=== PATIENT | male | born 1945 | race Caucasian/White ===

== ENCOUNTER → 2018-10-06 08:51 | Outpatient (CLI) | payer OTHER, SELFPAY ==
[2018-10-06 09:30] LABS: Hematocrit 42.7 % (41-53); Mean Corpuscular HGB Conc 35.1 % (30-36); Mean Corpuscular Hemoglobin 30.8 PG (26-34); Mean Corpuscular Volume 87.9 fL (80-100); Platelet Count 278 X10^3/uL (150-400); Red Blood Cell Count 4.86 X10^6/uL (4.5-5.9); Red Cell Distribution Width 13.1 % (11.6-14.8); White Blood Cell Count 8.7 X10^3/uL (4.5-11.0)
[2018-10-06 09:48] LABS: Alanine Aminotransferase 40 IU/L (21-72); Albumin 4.1 g/dL (3.5-5.0); Albumin Globulin Ratio 1.2 (1.0-2.8); Alkaline Phosphatase 69 U/L (38-126); Aspartate Aminotransferase 30 IU/L (17-59); BUN Creatinine Ratio 16.4 (6-22); Bilirubin Total 0.6 mg/dL (0.2-1.3); Blood Urea Nitrogen 18 mg/dL (9-20); Calcium 9.1 mg/dL (8.4-10.2); Carbon Dioxide 28 mmol/L (22-32); Chloride 103 mmol/L (98-107); Cholesterol 158 mg/dL (140-199); Estimated Glomerular Filt Rate > 60.0 mL/min (>60); Globulin 3.4 g/dL (1.7-4.1); Glucose 125 mg/dL (80-110); HDL Cholesterol 34 mg/dL (40-60); HEMOLYSIS < 15 (0-50); LDL Cholesterol Calculated 96 mg/dL (<100); Potassium 4.4 mmol/L (3.4-5.1); Sodium 144 mmol/L (137-145); Total Protein 7.5 g/dL (6.3-8.2); Triglycerides 138 mg/dL (35-150)
[2018-10-06 10:13] LABS: Thyroid Stimulating Hormone 1.43 uIU/mL (0.47-4.68)
== END ==
PROVIDERS: PCP Family Medicine; Visit Provider Family Medicine
DX: E07.9 Disorder of thyroid, unspecified (principal); E78.00 Pure hypercholesterolemia, unspecified; E78.5 Hyperlipidemia, unspecified; K21.9 Gastro-esophageal reflux disease without esophagitis; N40.0 Benign prostatic hyperplasia without lower urinary tract symptoms; Z51.81 Encounter for therapeutic drug level monitoring
CPT/HCPCS: 36415; 80053; 80061; 84153; 84443; 85027

== ENCOUNTER → 2019-06-05 07:57 | Outpatient (CLI) | payer MEDICARE, SELFPAY ==
[2019-06-05 09:30] LABS: Hemoglobin A1C% w Est Avg Glu 5.7 % (4.0-6.0)
[2019-06-05 10:03] LABS: Alanine Aminotransferase 33 IU/L (21-72); Albumin 4.2 g/dL (3.5-5.0); Albumin Globulin Ratio 1.2 (1.0-2.8); Alkaline Phosphatase 69 U/L (38-126); Aspartate Aminotransferase 27 IU/L (17-59); BUN Creatinine Ratio 14.2 (6-22); Bilirubin Total 0.8 mg/dL (0.2-1.3); Blood Urea Nitrogen 17 mg/dL (9-20); Calcium 9.4 mg/dL (8.4-10.2); Carbon Dioxide 27 mmol/L (22-32); Chloride 105 mmol/L (98-107); Estimated Glomerular Filt Rate 59.5 mL/min (>60); Globulin 3.5 g/dL (1.7-4.1); Glucose 114 mg/dL (80-110); HEMOLYSIS < 15 (0-50); Potassium 4.8 mmol/L (3.4-5.1); Sodium 142 mmol/L (137-145); Total Protein 7.7 g/dL (6.3-8.2)
[2019-06-05 10:30] LABS: Free T3, Triiodothyronine Free 3.25 pg/mL (2.77-5.27); Free T4, Direct Thyroxine 0.89 ng/dL (0.78-2.19)
[2019-06-05 10:43] LABS: Thyroid Stimulating Hormone 1.43 uIU/mL (0.47-4.68)
== END ==
PROVIDERS: PCP Family Medicine; Visit Provider Family Medicine
DX: E04.9 Nontoxic goiter, unspecified (principal); E07.9 Disorder of thyroid, unspecified; Z51.81 Encounter for therapeutic drug level monitoring
CPT/HCPCS: 36415; 80053; 83036; 84439; 84443; 84481

== ENCOUNTER → 2020-06-12 14:07 | Outpatient (CLI) | payer MEDICARE, SELFPAY ==
--- NOTE | 2020-06-12 14:08 | DI.US.S_ITS ---
PROCEDURE: US ABD AORTA ANEURYSM SCREEN INDICATIONS: AAA SCREEN TECHNIQUE: Real time scanning was performed of the aorta and iliac arteries, with image documentation. COMPARISON: None. FINDINGS: Aorta: Proximal aortic not well visualized secondary to overlying bowel gas. Mid-aorta measures 2.6 cm. Distal aortic diameter is 1.8 cm. Iliac arteries: Right common iliac artery measures 1.6 cm. Left common iliac artery measures 1.6 cm. IMPRESSION: Proximal aorta not well visualized; otherwise no abdominal aortic or common iliac artery aneurysm. Dictated by: Cristobal Ocampo [facility] Interpreted: Yinka García MD on 06/12/2020 at 15:06 Approved by: Yinka García M.D. on 06/12/2020 at 16:23
--- NOTE | 2020-06-12 14:08 | DI.US.S_ITS ---
PROCEDURE: US THYROID INDICATIONS: NODULE TECHNIQUE: Real-time scanning was performed of the thyroid gland, with image documentation. COMPARISON: [facility], US, BIOPSY LOCALIZATION/ASPIRATION, 01/02/2016, 10:52. [facility], US, THYROID, 12/18/2015, 14:38. FINDINGS: Right: Thyroid lobe measures 6.2 x 3.7 x 3.6 cm, and is homogeneous in echotexture. Left: Thyroid lobe measures 6.3 x 2.0 x 1.5 cm, and is homogenous in echotexture. Isthmus: 6-7 mm thick. Nodule number: 1 Location: Left mid lobe Size: 0.7 x 0.4 x 0.5 cm. Composition: Solid Echogenicity: Hypoechoic Shape: wider than tall. Margins: Smooth Echogenic foci: None Total points: 4 ACR TI-RADS category: Moderately suspicious Nodule number: 2 Location: Right middle lobe Size: 3.5 x 4.1 x 3.3 cm. Previously 2.8 x 3.2 x 3.7 cm. Previous FNA 01/02/16. Composition: Predominantly cystic Echogenicity: Hypoechoic Shape: wider than tall. Margins: Ill-defined Echogenic foci: None Total points: 2 ACR TI-RADS category: Not suspicious Nodule number: 3 Location: Right inferior lobe Size: 0.8 x 0.6 x 0.6 cm. Composition: Solid Echogenicity: Hypoechoic Shape: Taller than wide Margins: Smooth Echogenic foci: None Total points: 7 ACR TI-RADS category: Highly suspicious IMPRESSION: Multiple thyroid nodules as detailed above. Recommend continued ultrasound surveillance in 1 year as below. ACR TI-RADS definitions and recommendations: TI-RADS 1 (benign): 0 points. FNA not needed. TI-RADS 2 (not suspicious): 2 points. FNA not needed. TI-RADS 3 (mildly suspicious): 3 points. * FNA if 2.5 cm or larger, follow up if 1.5 cm or larger (at 1, 3, and 5 years). TI-RADS 4 (moderately suspicious): 4-6 points. * FNA if 1.5 cm or larger, follow up if 1 cm or larger (at 1, 2, 3, and 5 years). TI-RADS 5 (highly suspicious): 7 points or more. * FNA if 1 cm or larger, follow up if 0.5 cm or larger (every year for 5 years). Dictated by: Ramiro Carrasco M.D. on 06/12/2020 at 15:38 Approved by: Ramiro Carrasco M.D. on 06/12/2020 at 15:43
--- NOTE | 2020-06-12 14:08 | DI.ECHO.S_ITS ---
[place] [facility]---------+ [facility] +---------+ : : [id number] . : : : : [place] : : : : [id number] : : : : Phone: [phone] Echocardiogram Report + + :Name: RADHIKA BURNS Study Date: 06/12/2020 Height: 77 in : :[facility] Weight: 283 lb : : Gender: Male BSA: 2.6 m2 : :: 1945 Age: 74 yrs BP: 159/90 mmHg: :Reason For Study: ABNORMAL EKG : : Performed By: Sherri Singh : :Referring: NETTA MORROW : + + Interpretation Summary The left ventricle is normal in size. The ejection fraction is estimated to be 50-55%. The right ventricle is normal in size and function. No significant valvular pathology seen. The ascending aorta is mildly enlarged. Procedure: A two-dimensional transthoracic echocardiogram with color flow and Doppler was performed. The study quality was technically adequate. There is no prior echocardiogram noted for this patient. The patient was in sinus bradycardia with heart rates between 53-60 bpm during the exam. The patient had frequent PACs during the exam. The patient had a bundle branch block rhythm during the exam. Left Ventricle: The left ventricle is normal in size. Proximal septal thickening is noted. There is no echo evidence for significant left ventricular outflow tract obstruction. There is no thrombus. A false chord is noted (normal variant). The ejection fraction is estimated to be 50-55%. There is a mild dyssynchronous contraction pattern, consistent with a conduction abnormality. Diastolic parameters suggest a relaxation abnormality of the left ventricle, consistent with probable normal filling pressures. Right Ventricle: The right ventricle is normal in size and function. Atria: The left atrium is mildly dilated. Right atrial size is normal. There is no Doppler evidence for an interatrial shunt. Mitral Valve: There is mild mitral annular calcification. The mitral valve leaflets are slightly calcified. There is trace mitral regurgitation. Aortic Valve: The aortic valve is trileaflet. The aortic valve opens well. There is no aortic valve stenosis. There is trace aortic regurgitation. Tricuspid Valve: The tricuspid valve is normal in structure and function. Pulmonary artery pressures cannot be estimated because of the lack of a measurable TR jet velocity but the IVC suggests a CVP of around 8 mmHg. There is trace tricuspid regurgitation. Pulmonic Valve: The pulmonic valve leaflets are thin and pliable; valve motion is normal. There is mild pulmonic regurgitation. Great Vessels: The aortic root is normal size. The ascending aorta is mildly enlarged. The IVC is dilated (diameter is greater than 2.1 cm) yet it collapses greater than 50% with a sniff. This suggests a right atrial pressure of 8 mm Hg. Pericardium/ Pleura There is no pericardial effusion. There is no pleural effusion. MMode/2D Measurements & Calculations LVIDd: 5.8 cm LVOT diam: 2.3 cm LVIDs: 4.1 cm Ao root diam: 3.7 cm FS: 29.2 % asc Aorta Diam: 4.0 cm EPSS: 1.3 cm Ao Arch Diam (Prox Trans): 2.8 cm IVSd: 1.1 cm LVPWd: 0.96 cm LV spaulding. diameter/BSA (cm/m^2): 2.2 LV sys. diameter/BSA (cm/m^2): 1.6 LA A2 area: 30.4 cm2 RA long axis: 5.3 cm LA A4 area: 23.5 cm2 RA area: 18.7 cm2 LA length (vol): 6.0 cm RA vol: 55.8 ml LA vol: 101.5 ml RA : 21.5 ml/m2 LA vol index: 39.2 ml/m2 IVC diam: 2.0 cm RVD1 (basal): 3.7 cm TAPSE: 2.0 cm Doppler Measurements & Calculations Ao V2 max: 148.5 cm/sec LVOT Max Keith: 85.3 cm/sec Ao V2 mean: 92.5 cm/sec LV V1 max P.9 mmHg Ao max P.8 mmHg LV V1 VTI: 20.3 cm Ao mean P.0 mmHg GROVER(I,D): 2.8 cm2 Ao V2 VTI: 31.3 cm GROVER(V,D): 2.5 cm2 sev ratio: 0.65 GROVER indexed to BSA (cm^2/m^2): 1.1 MV E max keith: 69.4 cm/sec PA V2 max: 82.2 cm/sec MV A max keith: 78.7 cm/sec PA V2 mean: 51.7 cm/sec MV E/A: 0.88 PA mean P.3 mmHg Med Peak E' Keith: 6.0 cm/sec PA pr(Accel): 27.6 mmHg E/E' med: 11.6 Lat Peak E' Keith: 8.9 cm/sec E/E' lat: 7.8 E/e' average: 9.7 MV dec time: 0.20 sec [facility] 87.5 ml Reading Physician:07:10 PM
== END ==
PROVIDERS: PCP Student in an Organized Health Care Education/Training Program; Referring Provider Student in an Organized Health Care Education/Training Program; Visit Provider Student in an Organized Health Care Education/Training Program
DX: I37.1 Nonrheumatic pulmonary valve insufficiency (principal); I77.89 Other specified disorders of arteries and arterioles; E04.2 Nontoxic multinodular goiter; Z13.6 Encounter for screening for cardiovascular disorders; R94.31 Abnormal electrocardiogram [ECG] [EKG]; R07.89 Other chest pain; Z87.891 Personal history of nicotine dependence
CPT/HCPCS: 76536; 76706; 93306

== ENCOUNTER → 2021-05-26 16:44 | Outpatient (CLI) | payer MEDICARE, SELFPAY ==
[2021-05-26 18:25] LABS: COVID19 -Nasal RAPID Negative (Negative)
== END ==
PROVIDERS: PCP Student in an Organized Health Care Education/Training Program; Visit Provider Physician Assistant
DX: J02.9 Acute pharyngitis, unspecified (principal); Z20.822 Contact with and (suspected) exposure to COVID-19
CPT/HCPCS: 87635

== ENCOUNTER → 2021-06-06 15:44 | Outpatient (CLI) | payer MEDICARE, SELFPAY ==
[2021-06-06 16:45] LABS: COVID19 -Nasal RAPID Negative (Negative)
== END ==
PROVIDERS: PCP Student in an Organized Health Care Education/Training Program; Visit Provider Surgery
DX: Z01.812 Encounter for preprocedural laboratory examination (principal); Z20.822 Contact with and (suspected) exposure to COVID-19
CPT/HCPCS: 87635; C9803

== ENCOUNTER 2021-06-09 06:41 | Day surgery (SDC) | payer MEDICARE, SELFPAY ==
[2021-06-09] VITALS (7 sets, daily range): BP systolic 111–139; BP diastolic 70–89; PULSE 63–97; RESP 10–16; TEMP 36.1–37.1; O2SAT 93–95; BMI 34.9
--- NOTE | 2021-06-09 | PATH_ITS ---
[facility] Accession Number: [id number] . 01 Material submitted: . rectum - RECTAL POLYP . 02 Diagnosis: Rectal Polyp, Biopsy: Inflammatory polyp. MRV 06/11/2021 1003 Local . 02 Electronically signed: . Theodore Daniel MD, PhD, Pathologist NPI- [id number] . 01 Gross description: . RECTAL POLYP: Received in formalin is 1 fragment(s) of gore, soft tissue measuring 0.7 x 0.6 x 0.3 cm submitted entirely in 1 cassette(s) /GROVER 06/10/2021 0334 Local . 02 Pathologist provided ICD-10: K51.40 . 02 CPT . 466539 Performed at: 01 [facility] Cytology [address] [place] [address], [place], [place] [id number] MD aCesar Cortez MD Phone: [phone] Performed at: 02 [facility] [address] [place], [place] [id number] MD Angeline Alberto MD Phone: [phone]
[2021-06-09] MEDS: LACTATED RINGERS 1,000 ML 200 ML IV (07:15)
--- NOTE | 2021-06-09 07:46 | PM.HP.1 ---
History of Present Illness History of Present Illness Date Patient Seen: 06/09/21 Time Patient Seen: 07:46 Chief complaint: SDC Narrative: The patient presents for colorectal sreening. Colonoscopy 5 years ago. Here today because he had a positive fecal immunoccult test (FIT). No personal or family history of colon cancer. On further history denies any recent gastrointestinal symptoms. No nausea, vomiting, abdominal pain, loss of appetite, unexplained weight loss, change in bowel habits, diarrhea, constipation, melena, hematochezia, or bright red blood per rectum. Patient History Medical History Rectal bleeding Family & Social History Social History: household members spouse Tobacco & Substance use: Smoking Status Former smoker alcohol intake current alcohol intake frequency holiday/special occasion Substance Use Type does not use Meds Home Medications and Allergies Home Medications Medication Instructions Recorded Confirmed Type pseudoephedrine HCl 60 mg tablet 1 tab PO PRN #0 12/25/11 06/09/21 History dorzolamide 22.3 mg-timolol 6.8 1 drp OPHTH BID #0 07/26/17 06/09/21 History mg/mL eye drops lovastatin 40 mg tablet 20 mg PO QDAY #90 tab 09/12/20 06/09/21 Rx Allergies Allergy/AdvReac Type Severity Reaction Status Date / Time No Known Drug Allergies Allergy Verified 06/09/21 06:59 Review of Systems Review of Systems ROS: Yes All systems reviewed with the patient and are negative except as otherwise documented Exam Vital Signs (past 8 hours): - 06/09/21 07:04 Temperature 97.0 F L Pulse Rate 97 H Respiratory Rate 16 Blood Pressure 139/89 Pulse Oximetry 95 Oxygen Delivery Method Room Air Narrative Exam Narrative: GENERAL-well developed elderly male, no acute distress HEENT-no scleral icterus, hearing intact NECK-no JVD, trachea midline CVS- regular rate, no peripheral edema RESP-unlabored respiratory effort, no audible wheezing GI-soft, nontender nondistended MSK-no cyanosis or clubbing, extremities without deformity SKIN-warm, dry NEURO-alert and oriented, no focal deficits PYSCH-Appropriate mood and affect Assessment & Plan Assessment & Plan narrative: The patient requires colorectal screening and colonoscopy is recommended following a positive FIT. Technical details were discussed. Risks, benefits, alternatives explained. Risks including but not limited to myocardial infarction, aspiration, bleeding, pain, missed lesion, incomplete examination, need for further radiographic studies, colonic perforation, and need for major abdominal surgery were discussed. All questions were answered to their satisfaction, and they are in agreement with this plan.
[2021-06-09] MEDS: fentaNYL 250 MCG/5 ML INJ IV (08:11)
[2021-06-09] MEDS: MIDAZOLAM 5 MG/5 ML VIAL IV (08:11)
--- NOTE | 2021-06-09 08:28 | P.OP.ENDO_ITS ---
Operative Date/Time/Diagnoses Date of procedure: 06/09/21 Time of procedure: 08:28 Pre-op diagnosis: Positive FIT Post-op diagnosis: other (rectal polyp) Procedure & Clinicians Study performed: Colonoscopy and polypectomy Same procedure as scheduled: Yes Indications: Positive FIT Surgeon: Blaise Sanchez Procedure Notes Procedure in detail: Medications: Conscious sedation using 6mg IV midazolam and 200mcg IV of fentanyl The history and physical was performed/updated and the patient is ASA class is 2. The procedure was discussed in detail with the patient. Potential risks complications including infection, bleeding, missed diagnosis, perforation, need for surgery, and were explained. Their questions were answered and informed consent was obtained. Patient was brought to the procedure room and placed standard monitoring equ ipment. The patient's vital signs were monitored continuously throughout the entire procedure. Prior to starting time-out was performed. The patient was placed in the left lateral recumbent position. Procedural sedation was administered. Examination began with a thorough inspection of the perianal area there was no evidence of fissures, fistulae, external hemorrhoids or cutaneous malignancy. The colonoscopy scope was then placed into the anal canal and was advanced to the cecum, which was identified by the ileocecal valve, the appendiceal orifice and the confluence of the taenia. The scope was then slowly withdrawn examining colon thoroughly in all directions, irrigating it of any residual stool. FINDINGS 1. 1 cm mid rectal polyp at 20 cm from the verge removed with cold snare in its entirety. 3 mL of tattoo injected into the submucosal space surrounding polypectomy site. The patient tolerated the procedure well. They will be discharged once criteria are met. The prep was of good/excellent quality. The withdrawl time was 7 minutes. The sedation time was 34 minutes. Specimen(s): other (Rectal polyp) Complications: none Impression: Colonic polyp Post-procedure Plan for aftercare: Will notify with pathology results Disposition: same day surgery
== END 2021-06-09 09:15 | disposition home or self-care (01) ==
PROVIDERS: PCP Student in an Organized Health Care Education/Training Program; Referring Provider Surgery; Visit Provider Surgery
PROC: 0DJD8ZZ Inspection of Lower Intestinal Tract, Via Natural or Artificial Opening Endoscopic (ICD-10-PCS; CPT 45378; principal; 2021-06-09 07:45)
DX: R19.5 Other fecal abnormalities (principal); D12.8 Benign neoplasm of rectum
CPT/HCPCS: 45385; 99152; 99153; J2250; J3010

== ENCOUNTER → 2021-07-31 10:04 | Outpatient (CLI) | payer MEDICARE, SELFPAY ==
--- NOTE | 2021-07-31 10:05 | DI.US.S_ITS ---
PROCEDURE: US THYROID INDICATIONS: FOLLOW-UP NODULES TECHNIQUE: Real-time scanning was performed of the thyroid gland, with image documentation. COMPARISON: [facility], US, US THYROID, 06/12/2020, 14:33. FINDINGS: Right: Thyroid lobe measures 6.2 x 2.9 x 2.8 cm, and is heterogeneous in echotexture. Left: Thyroid lobe measures 6.1 x 2.4 x 1.9 cm, and is heterogeneous in echotexture. Isthmus: 4.9 mm thick. Nodule number: 1 Location: Left midpole Size: 7.5 x 3.9 x 4.7 mm. Composition: Solid Echogenicity: Hyperechoic Shape: Wider than tall Margins: Smooth Echogenic foci: None Total points: 4 ACR TI-RADS category: Moderately suspicious Nodule number: 2 Location: Right upper pole Size: 2.9 x 1.9 by 1.9 cm. Previously 3.5 x 4.1 x 3.3 cm. Composition: Solid. Previously predominately cystic. Echogenicity: heterogeneous Shape: Wider than tall Margins: Ill-defined Echogenic foci: None Total points: 4 ACR TI-RADS category: Moderately suspicious Nodule number: 3 Location: Right lower pole Size: 7.3 x 5.1 by 5.8 mm. Composition: Solid Echogenicity: Isoechoic Shape: Taller than wide Margins: Ill-defined Echogenic foci: None. Total points: 6 ACR TI-RADS category: Moderately suspicious IMPRESSION: No significant change has occurred. Multiple thyroid nodules as detailed above. Recommend continued ultrasound surveillance in 1 year as below. ACR TI-RADS definitions and recommendations: TI-RADS 1 (benign): 0 points. FNA not needed. TI-RADS 2 (not suspicious): 2 points. FNA not needed. TI-RADS 3 (mildly suspicious): 3 points. * FNA if 2.5 cm or larger, follow up if 1.5 cm or larger (at 1, 3, and 5 years). TI-RADS 4 (moderately suspicious): 4-6 points. * FNA if 1.5 cm or larger, follow up if 1 cm or larger (at 1, 2, 3, and 5 years). TI-RADS 5 (highly suspicious): 7 points or more. * FNA if 1 cm or larger, follow up if 0.5 cm or larger (every year for 5 years). Dictated by: Tucker Cuevas M.D. on 07/31/2021 at 17:04 Approved by: Tucker Cuevas M.D. on 07/31/2021 at 17:22
== END ==
PROVIDERS: PCP Student in an Organized Health Care Education/Training Program; Referring Provider Student in an Organized Health Care Education/Training Program; Visit Provider Student in an Organized Health Care Education/Training Program
DX: E04.2 Nontoxic multinodular goiter (principal)
CPT/HCPCS: 76536

== ENCOUNTER → 2021-12-08 09:23 | Outpatient (CLI) | payer MEDICARE, SELFPAY ==
[2021-12-08 12:28] LABS: COVID19 -Nasal RAPID Negative (Negative)
== END ==
PROVIDERS: PCP Student in an Organized Health Care Education/Training Program; Visit Provider Family Medicine Sleep Medicine
DX: Z20.822 Contact with and (suspected) exposure to COVID-19 (principal)
CPT/HCPCS: 87635; C9803

== ENCOUNTER 2021-12-09 07:31 | Day surgery (SDC) | payer MEDICARE, SELFPAY ==
[2021-12-09] MEDS: PROPARACAINE 0.5% OPHTH SOL 2 DROPS EYE-OP (08:03)
[2021-12-09] MEDS: CATARACT EYE COMPOUND (10 DROPS/SYRINGE) 3 DROPS EYE-OP (08:05)
[2021-12-09 08:06] VITALS: BP 144/92; PULSE 65; TEMP 36.6; O2SAT 97
[2021-12-09 08:10] VITALS: BMI 34.9
--- NOTE | 2021-12-09 08:54 | P.OP.PRE_ITS ---
Pre-operative Note Interval Note History & Physical reviewed/Exam performed by Physician: Yes Changes to H&P: No Addendum Addendum Note: Threre are no non surgical alternatives to the patient's condition. Deterior ation of the patient's condition is expected. Delay may result in more complex future surgery.
--- NOTE | 2021-12-09 08:55 | PM.OP.1 ---
Operative Date/Time/Diagnoses Pre-op diagnosis: Nuclear cataract right eye Procedure & Clinicians Procedure: Cataract Surgery Same procedure as scheduled: Yes Surgeon: Wes Gomez Anesthesia Type: MAC +/- and Sedation Operative Notes Procedure in detail: Patient brought to the operating suite. Tetracaine drops placed in the right eye. Patient was prepped and draped in sterile manner. Wire lid speculum was placed in the eye. Betadine drops were placed on the eye. This was irrigated. Lidocaine jelly was placed on the eye. A paracentesis port was created with a side-port blade. 0.1 mL 1% preservative free lidocaine was injected into the anterior chamber. The anterior chamber was deepened with viscoelastic. 2.6 mm keratome was used to create a temporal clear corneal incision. Cystotome and Utrata forceps were used to create continuous tear capsulorrhexis. Balanced salt solution was used to hydro dissect the nucleus. The phacoemulsification handpiece was inserted and the nucleus was removed using the stop and chop technique. The irrigation aspiration handpiece was inserted and the remaining cortex was removed. Anterior chamber was deepened with viscoelastic. An Gonzalez DIB00 intraocular lens with a power of 17.5 was injected into the capsular bag. Irrigation aspiration handpiece was inserted and the remaining viscoelastic was removed. Incision was hydrated with balanced salt solution and found to be leak free with pressure with Weck-Dania sponges. 0.1 mL Vigamox injected anterior chamber. 0.3 mL Kenalog 10 mg was injected subconjunctivally. Lid speculum was removed. The patient left the operating room in excellent condition. Complications: none Post-operative Condition: stable Disposition: same day surgery
[2021-12-09] MEDS: HYALURONATE SODIUM 30 MG-10 MG/ML SYRINGES 1 BOX INTRAOCULA (09:05)
[2021-12-09] MEDS: LIDOCAINE 2% (GLYDO) 6 ML GEL TOP (09:06)
[2021-12-09] MEDS: MOXIFLOXACIN INJ 4 MG/0.8 ML VIAL 0.5 MG EYE-OP (09:06)
[2021-12-09] MEDS: PHENYLEPHRINE/LIDOCAINE VIAL (OR) 0.2 ML EYE-OP (09:06)
[2021-12-09] MEDS: TETRACAINE 0.5% OPHTH DROPS 4 ML 2 DROPS EYE-OP (09:06)
[2021-12-09] MEDS: BALANCED SALT IRRIG SOLN NO.2 500 ML, EPINEPHrine 1 MG IRR (09:06)
[2021-12-09] MEDS: TRIAMCINOLONE 50 MG/5 ML VIAL INJ (09:06)
[2021-12-09 09:21] VITALS: BP 149/87; PULSE 63; RESP 16; TEMP 36.6; O2SAT 95
== END 2021-12-09 09:50 | disposition home or self-care (01) ==
PROVIDERS: PCP Student in an Organized Health Care Education/Training Program; Referring Provider Ophthalmology; Visit Provider Ophthalmology
PROC: (CPT 66984; principal; 2021-12-09 09:15)
DX: H25.11 Age-related nuclear cataract, right eye (principal); E78.5 Hyperlipidemia, unspecified
CPT/HCPCS: 66984; J0171; J2250; J3010; J3301

== ENCOUNTER → 2021-12-22 11:33 | Outpatient (CLI) | payer MEDICARE, SELFPAY ==
[2021-12-22 14:36] LABS: COVID19 -Nasal RAPID Negative (Negative)
== END ==
PROVIDERS: PCP Student in an Organized Health Care Education/Training Program; Visit Provider Family Medicine Sleep Medicine
DX: Z20.822 Contact with and (suspected) exposure to COVID-19 (principal)
CPT/HCPCS: 87635; C9803

== ENCOUNTER 2021-12-23 08:26 | Day surgery (SDC) | payer MEDICARE, SELFPAY ==
[2021-12-23 09:31] VITALS: BMI 33.2
[2021-12-23] MEDS: PROPARACAINE 0.5% OPHTH SOL 2 DROPS EYE-OP (09:32)
[2021-12-23 09:37] VITALS: BP 158/94; PULSE 64; RESP 18; TEMP 36.3; O2SAT 98
[2021-12-23] MEDS: CATARACT EYE COMPOUND (10 DROPS/SYRINGE) 3 DROPS EYE-OP (09:42)
--- NOTE | 2021-12-23 10:33 | PM.PREOP ---
Pre-operative Note Interval Note History & Physical reviewed/Exam performed by Physician: Yes Changes to H&P: No
--- NOTE | 2021-12-23 10:34 | PM.OP.1 ---
Operative Date/Time/Diagnoses Pre-op diagnosis: Nuclear Cataract Left eye Post-op diagnosis: same Procedure & Clinicians Same procedure as scheduled: Yes Surgeon: Wes Gomez Anesthesia Type: MAC +/- and Sedation Operative Notes Procedure in detail: Patient brought to the operating suite. Tetracaine drops placed in the left eye. Patient was prepped and draped in sterile manner. Wire lid speculum was placed in the eye. Betadine drops were placed on the eye. This was irrigated. Lidocaine jelly was placed on the eye. A paracentesis port was created with a side-port blade. 0.1 mL 1% preservative free lidocaine was injected into the anterior chamber. The anterior chamber was deepened with viscoelastic. 2.6 mm keratome was used to create a temporal clear corneal incision. Cystotome and Utrata forceps were used to create continuous tear capsulorrhexis. Balanced salt solution was used to hydro dissect the nucleus. The phacoemulsification handpiece was inserted and the nucleus was removed using the stop and chop technique. The irrigation aspiration handpiece was inserted and the remaining cortex was removed. Anterior chamber was deepened with viscoelastic. An Gonzalez DIB00 intraocular lens with a power of 17.5 was injected into the capsular bag. Irrigation aspiration handpiece was inserted and the remaining viscoelastic was removed. Incision was hydrated with balanced salt solution and found to be leak free with pressure with Weck-Dania sponges. 0.1 mL Vigamox injected anterior chamber. 0.3 mL Kenalog 10 mg was injected subconjunctivally. Lid speculum was removed. The patient left the operating room in excellent condition. Complications: none Post-operative Condition: stable Disposition: same day surgery
[2021-12-23] MEDS: HYALURONATE SODIUM 30 MG-10 MG/ML SYRINGES 1 BOX INTRAOCULA (10:46)
[2021-12-23] MEDS: PHENYLEPHRINE/LIDOCAINE VIAL (OR) 0.2 ML EYE-OP (10:46)
[2021-12-23] MEDS: MOXIFLOXACIN INJ 4 MG/0.8 ML VIAL 0.5 MG EYE-OP (10:46)
[2021-12-23] MEDS: BALANCED SALT IRRIG SOLN NO.2 500 ML, EPINEPHrine 1 MG IRR (10:47)
[2021-12-23] MEDS: TETRACAINE 0.5% OPHTH DROPS 4 ML 2 DROPS EYE-OP (10:47)
[2021-12-23] MEDS: TRIAMCINOLONE 50 MG/5 ML VIAL INJ (10:47)
[2021-12-23] MEDS: LIDOCAINE 2% (GLYDO) 6 ML GEL TOP (10:47)
[2021-12-23 10:59] VITALS: BP 154/90; PULSE 57; RESP 16; TEMP 36.1; O2SAT 99
== END 2021-12-23 11:16 | disposition home or self-care (01) ==
PROVIDERS: PCP Student in an Organized Health Care Education/Training Program; Referring Provider Ophthalmology; Visit Provider Ophthalmology
PROC: (CPT 66984; principal; 2021-12-23 10:15)
DX: H25.12 Age-related nuclear cataract, left eye (principal)
CPT/HCPCS: 66984; J0171; J2250; J3301

== ENCOUNTER → 2022-03-04 08:08 | Outpatient (CLI) | payer MEDICARE, SELFPAY ==
[2022-03-04 08:53] LABS: BUN Creatinine Ratio 12.6 (6-22); Blood Urea Nitrogen 16 mg/dL (9-20); Calcium 8.9 mg/dL (8.4-10.2); Carbon Dioxide 27 mmol/L (22-32); Chloride 107 mmol/L (98-107); Cholesterol 193 mg/dL (140-199); Estimated Glomerular Filt Rate 59 mL/min (>60); Glucose 123 mg/dL (80-110); HDL Cholesterol 36 mg/dL (40-60); HEMOLYSIS < 15 (0-50); LDL Cholesterol Calculated 117 mg/dL (<100); Potassium 4.2 mmol/L (3.4-5.1); Sodium 141 mmol/L (137-145); Triglycerides 198 mg/dL (35-150)
== END ==
PROVIDERS: PCP Student in an Organized Health Care Education/Training Program; Referring Provider Student in an Organized Health Care Education/Training Program; Visit Provider Student in an Organized Health Care Education/Training Program
DX: E78.2 Mixed hyperlipidemia (principal); N18.31 Chronic kidney disease, stage 3a; R03.0 Elevated blood-pressure reading, without diagnosis of hypertension
CPT/HCPCS: 36415; 80048; 80061

== ENCOUNTER 2022-10-06 10:42 | Emergency (ER) | payer MEDICARE, SELFPAY ==
[2022-10-06 11:22] VITALS: BP 188/95; PULSE 62; RESP 15; TEMP 36.7; O2SAT 98; BMI 32.5
--- NOTE | 2022-10-06 11:27 | DI.US.S_ITS ---
PROCEDURE: US PERIPH VENOUS LOW EXTREM LT INDICATIONS: EDEMA TECHNIQUE: Real-time imaging, as well as color and pulse Doppler interrogation, were performed of the lower extremity deep veins from the inguinal ligament to the popliteal fossa. COMPARISON: None. FINDINGS: The common femoral, femoral and popliteal veins are normally compressible, and free of intraluminal thrombus. Color and pulse Doppler demonstrate normal phasic intraluminal flow. There is normal augmentation response to distal compression maneuver. IMPRESSION: No sonographic evidence of DVT. Dictated by: Canelo Katz M.D. on 10/06/2022 at 13:07 Approved by: Canelo Katz M.D. on 10/06/2022 at 13:07
--- NOTE | 2022-10-06 12:37 | ED_ITS ---
HPI - Extremity Problem <Jessenia Taylor PA-C - Last Filed: 10/06/22 16:04> General Chief complaint: Extremity Problem,Nontraumatic Stated complaint: DVT Time Seen by Provider: 10/06/22 12:37 Source: patient Mode of arrival: Wheelchair History of Present Illness HPI Narrative: 77-year-old male with a history of obesity, chronic lower extremity swelling presents with concern for left lower extremity swelling worse than baseline with some redness and tenderness that has been present for 1-2 weeks. Patient states that swelling has not been much more than usual but a couple weeks ago he noticed some redness on the inside of his calf and some pain that isn't typically present. He states his pain is about a 2/3 started as a sharp type pain and now it feels more like an achy pain. 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 He states that his pain really started a couple of days ago and ?I googled it and I called my doctor and they could not get me in and they told me to go to the walk-in clinic?. Patient denies any fevers, chills, any known injury to the affected leg, also denies chest pain, shortness of breath, coughing or hemoptysis, ankle pain or knee pain. He states he has otherwise been in his usual state of health Related Data Home Medications Medication Instructions Recorded Confirmed pseudoephedrine HCl 60 mg tablet 1 tab PO PRN ##0 12/25/11 07/22/22 dorzolamide 22.3 mg-timolol 6.8 1 drp OPHTH BID ##0 07/26/17 07/22/22 mg/mL eye drops Previous Rx's Medication Instructions Recorded lovastatin 20 mg tablet 20 mg PO BEDTIME #90 tabs 03/03/22 Allergies Allergy/AdvReac Type Severity Reaction Status Date / Time No Known Drug Allergies Allergy Verified 10/06/22 11:22 Review of Systems <Jessenia Taylor PA-C - Last Filed: 10/06/22 16:04> Review of Systems Narrative: Unremarkable except as noted in the HPI Patient History <Jessenia Taylor PA-C - Last Filed: 10/06/22 16:04> Medical History Hydrocele of testis Rectal bleeding Surgical History H/O cataract removal with insertion of prosthetic lens Social History household members: spouse Smoking Status: Former smoker alcohol intake: current Smoking Status: Former smoker alcohol intake frequency: holidays/special occasions only Substance Use Type: does not use Exam <Jessenia Taylor PA-C - Last Filed: 10/06/22 16:04> Narrative Exam Narrative: GENERAL: 77 year old patient appears stated age. Well-developed patient, in mild distress. HEAD: Atraumatic. Normocephalic. EYES: Pupils equal round and reactive. Extraocular motions intact. No scleral icterus. No injection or drainage. ENT: Nose without bleeding, purulent drainage. Airway patent. NECK: Trachea midline. Non tender CARDIOVASCULAR: Regular rate and rhythm without murmurs, gallops, or rubs. RESPIRATORY: Clear to auscultation. Breath sounds equal bilaterally. No wheezes, rales, or rhonchi. GASTROINTESTINAL: Abdomen protuberant, nondistended. EXTREMITIES: There is bilateral lower extremity edema of the calves and ankles at baseline on the right per patient. Slightly greater than baseline on the left per patient. 1+ edema on the right 2+ pitting edema on the left. There is a area of slight erythema and dry appearing skin possibly consistent with early stasis dermatitis on the medial aspect of the mid left calf that is approximately 5 cm in diameter. It is tender with moderate palpation but is not sensitive to light touch. This area of mild erythema has no fluctuance and is not indurated. No other edema or joint tenderness. BACK: Nontender without deformity or crepitance. No flank tenderness. NEURO: AOx3. SKIN: See extremities No other rash or erythema of visible areas Initial Vital Signs Initial Vital Signs: Vital Signs Temperature 98.0 F 10/06/22 11:22 Pulse Rate 62 10/06/22 11:22 Respiratory Rate 15 10/06/22 11:22 Blood Pressure 188/95 H 10/06/22 11:22 Pulse Oximetry 98 10/06/22 11:22 Oxygen Delivery Method 10/06/22 11:22 <Amrita Parkinson DO - Last Filed: 10/07/22 19:38> Initial Vital Signs Initial Vital Signs: Vital Signs Temperature 98.0 F 10/06/22 11:22 Pulse Rate 62 10/06/22 11:22 Respiratory Rate 15 10/06/22 11:22 Blood Pressure 188/95 H 10/06/22 11:22 Pulse Oximetry 98 10/06/22 11:22 Oxygen Delivery Method 10/06/22 11:22 Scores <Jessenia Taylor PA-C - Last Filed: 10/06/22 16:04> João Criteria for DVT Active Cancer (Treatment within 6 months): No Bedridden recently >3 days or major surgery within 4 weeks: No Calf Swelling >3cm compared to other leg: Yes Collateral (nonvericose) superficial veins present: No Entire leg swollen: No Localized tenderness along the deep vein system: No Pitting edema, confined to symtomatic leg: Yes Paralysis, paresis, or recent plaster immobilization of ext: No Previously documented DVT: No Alternative dx to DVT as likely or more likely: Yes Tian' criteria for DVT: 0 <Amrita Parkinson DO - Last Filed: 10/07/22 19:38> João Criteria for DVT Tian' criteria for DVT: 0 Course <Jessenia Taylor PA-C - Last Filed: 10/06/22 16:04> Orders Ordered: ED Orders 10/06/22 11:27 US periph venous low extrem lt Stat Vital Signs Vital signs: Vital Signs - 8 hr 10/06/22 11:22 10/06/22 14:06 Temperature 98.0 F Pulse Rate 62 53 L Respiratory Rate 15 17 Blood Pressure 188/95 H 190/96 H Pulse Oximetry 98 98 Oxygen Delivery Method Room Air Room Air <Amrita Parkinson DO - Last Filed: 10/07/22 19:38> Orders Ordered: ED Orders 10/06/22 11:27 periph venous low extrem lt Stat Vital Signs Vital signs: Vital Signs - 8 hr 10/06/22 11:22 10/06/22 14:06 Temperature 98.0 F Pulse Rate 62 53 L Respiratory Rate 15 17 Blood Pressure 188/95 H 190/96 H Pulse Oximetry 98 98 Oxygen Delivery Method Room Air Room Air MDM - Extremity (Nontraumatic) <Jessenia Taylor PA-C - Last Filed: 10/06/22 16:04> Imaging Data US - DVT: Radiologist's Impression: [address] [address] Ultrasound Report Signed Patient: Ean Yu MR#: [id number] : 1945 Acct:[id number] Age/Sex: 77 / M Date of Service: 10/06/22 Loc: ED Accession Number: [id number] ?? Procedure: US periph venous low extrem lt Ordering Provider: Amrita Parkinson D.O. PROCEDURE:? US PERIPH VENOUS LOW EXTREM LT ? INDICATIONS:? EDEMA ? TECHNIQUE:? Real-time imaging, as well as color and pulse Doppler interrogation, were performed of the lower extremity deep veins from the inguinal ligament to the popliteal fossa.? ? COMPARISON:? None. ? FINDINGS:? The common femoral, femoral and popliteal veins are normally compressible, and free of intraluminal thrombus.? Color and pulse Doppler demonstrate normal phasic intraluminal flow.? There is normal augmentation response to distal compression maneuver. ? ? IMPRESSION:? No sonographic evidence of DVT. ? ? Dictated by: Canelo Katz M.D. on 10/06/2022 at 13:07 ? ? Approved by: Canelo Katz M.D. on 10/06/2022 at 13:07?? [facility] Narrative Medical decision making narrative: 77-year-old male with a history of chronic bilateral lower extremity swelling presents with concern for 2 weeks of a red area on inside of his left calf along with slightly increased swelling in his left leg compared to baseline as well as some 2 or 3/10 pain for the past 3 days in the affected area. Patient presented with concern for possible DVT. His wells DVT score was actually 0, ultrasound was obtained for further evaluation. This was negative for evidence of DVT. On exam I have low suspicion for infection/cellulitis, and there is no evidence or history suggestive of bony injury and x-rays are not obtained today. I suspect that the patient's overuse and poor circulation is the cause of his increased swelling, slight pain in the area of erythema is most likely an early stasis dermatitis. I counseled the patient regarding this and counseled him regarding monitoring for signs of infection. At this time it did not feel that is infection and I am not prescribing antibiotics. I advised the patient to follow-up closely with his primary care provider, consider using compression socks or Ortiz bandage wrap on the affected extremity, maintain regular daily activities but stopped doing the excess work he has been doing as I suspect that this has exacerbated his chronic swelling. Also advised to elevate the leg when possible, use Tylenol and ibuprofen for pain.. Patient's lungs are clear and he has no symptoms suggestive of CHF and I have low suspicion for this today x-ray is not obtained. This patient was initially seen and evaluated in the lobby due to lack of space before being moved to an ED room prior to discharge. Return precautions provided, follow-up plan discussed, all questions answered. Discharge Plan Departure Patient Disposition: Home Clinical Impression: Edema of left lower extremity, Leg pain, left, Lower extremity edema Activity Restrictions/Additional Instructions: Thank you for letting us be part of your care in the emergency department today. We evaluated your leg with exam and ultrasound today. We did not see any evidence of a DVT today on the ultrasound. There is no evidence of an emergent or life threatening illness at this time, but follow up with your doctor in 1-2 days is recommended nonetheless to continue to rule out serious underlying causes of your symptoms. Please call the office for an appointment. Please return to the Emergency Department for any worsening or persistent symptoms. Please take your regular medications as directed, you can use Tylenol and ibuprofen for pain. However as we discussed I do think that keeping her leg elevated, using a compression stocking or wide Ortiz wrap for compression will help with your increased swelling and tenderness. I suspect that the area of slight redness and tenderness is due to poor vasculature in the area, although it is also possible it is an early infection and please monitor for signs of infection as we discussed. You have been more active recently and on your feet more than usual and I think that this may have contributed to your increased swelling, ear pain and the area of redness on your leg. I do not want you to stop all activity but I do want you to go back to your normal baseline activities rather than doing all this excess walking. Keeping your legs elevated should help some with the swelling he should also talk to your primary care provider about possibly using compression socks. If you have concerns for new or worsening symptoms please do not hesitate to be re-evaluated or seek medical care. Prescriptions: No Action pseudoephedrine HCl 60 MG tablet 1 tab PO PRN Qty: 0 Label Comments: has not needed in many weeks dorzolamide-timolol 2 %/0.5 % drops 1 drp OPHTH BID Qty: 0 lovastatin 20 mg tablet 20 mg PO BEDTIME Qty: 90 3RF Referrals: Arben Anton MD [Primary Care Provider] - Visit Report Forms: Patient Portal/API <Amrita Parkinson DO - Last Filed: 10/07/22 19:38> Cosign ED Attending Cosstephature Attestation: I was immediately available in the department for consultation. Documentation has been reviewed. I agree with assessment and plan.
[2022-10-06 14:06] VITALS: BP 190/96; PULSE 53; RESP 17; O2SAT 98
--- NOTE | 2022-10-06 14:08 | PC.NURSE ---
Patient reports left lower leg pain and I've been doing a lot of walking lately. No redness or swelling noted at this time.
== END 2022-10-06 14:09 | disposition home or self-care (01) ==
PROVIDERS: Emergency Provider Student in an Organized Health Care Education/Training Program; PCP Student in an Organized Health Care Education/Training Program
DX: R60.0 Localized edema (principal)
CPT/HCPCS: 93971; 99281; 99283

== ENCOUNTER → 2022-10-20 10:19 | Outpatient (CLI) | payer MEDICARE, SELFPAY ==
[2022-10-20 11:26] LABS: BUN Creatinine Ratio 20.2 (6-22); Blood Urea Nitrogen 21 mg/dL (9-20); Carbon Dioxide 25 mmol/L (22-32); Chloride 103 mmol/L (98-107); Cholesterol 172 mg/dL (140-199); Estimated Glomerular Filt Rate > 60 mL/min (>60); Glucose 111 mg/dL (80-110); HDL Cholesterol 40 mg/dL (40-60); HEMOLYSIS < 15 (0-50); LDL Cholesterol Calculated 102 mg/dL (<100); Potassium 4.3 mmol/L (3.4-5.1); Sodium 141 mmol/L (137-145); Triglycerides 148 mg/dL (35-150)
[2022-10-20 11:56] LABS: TSH w/ Reflex to FT4 2.58 uIU/mL (0.47-4.68)
== END ==
PROVIDERS: PCP Student in an Organized Health Care Education/Training Program; Referring Provider Student in an Organized Health Care Education/Training Program; Visit Provider Student in an Organized Health Care Education/Training Program
DX: E78.2 Mixed hyperlipidemia (principal); R09.89 Other specified symptoms and signs involving the circulatory and respiratory systems; E66.9 Obesity, unspecified; R03.0 Elevated blood-pressure reading, without diagnosis of hypertension
CPT/HCPCS: 36415; 80048; 80061; 82384; 84443

== ENCOUNTER → 2022-10-23 07:55 | Outpatient (CLI) | payer MEDICARE, SELFPAY ==
--- NOTE | 2022-10-23 07:56 | DI.ECHO.S_ITS ---
[facility]---------+ [facility] +---------+ : : [id number] : : : : [place] : : : : [id number] : : : : Phone: [phone]+ Echocardiogram Report + + :Name: RADHIKA BURNS Study Date: 10/23/2022 Height: 77 in : :[facility] ReadingLocation: Weight: 277 lb : : Gender: Male BSA: 2.6 m2 : :: 1945 Age: 77 yrs BP: 125/79 mmHg: :Reason For Study: Labile hypertension : :Ordering Physician: CRISTHIAN, : :NETTA Performed By: Sherri Jackman : :Referring: NETTA MORROW : + + Interpretation Summary The patient was in sinus bradycardia with heart rates between 48-53 bpm during the exam. The ejection fraction is estimated to be 55-60%. Diastolic function could not be accurately assessed due to contradictory data. The right ventricular systolic function is normal. The left atrium is moderately dilated. The right ventricle is mild to moderately dilated. The right atrium is mildly dilated. There is trace aortic regurgitation. Pulmonary artery pressures cannot be estimated because of the lack of a measurable TR jet velocity. The ascending aorta is mildly enlarged. Compared to the prior study dated 06/12/2020, the right ventricle now appears dilated. Procedure: A two-dimensional transthoracic echocardiogram with color flow and Doppler was performed. The study quality was technically adequate. The patient was in sinus bradycardia with heart rates between 48-53 bpm during the exam. Left Ventricle: The left ventricle is normal in size and wall thickness. The ejection fraction is estimated to be 55-60%. Diastolic function could not be accurately assessed due to contradictory data. Right Ventricle: The right ventricle is mild to moderately dilated. The right ventricular systolic function is normal. Atria: The left atrium is moderately dilated. The right atrium is mildly dilated. There is no Doppler evidence for an atrial septal defect. Mitral Valve: The mitral valve is normal in structure and function. There is trace mitral regurgitation. Aortic Valve: The aortic valve is trileaflet. There is no aortic valve stenosis. There is trace aortic regurgitation. Tricuspid Valve: The tricuspid valve is normal. There is trace tricuspid regurgitation. Pulmonary artery pressures cannot be estimated because of the lack of a measurable TR jet velocity. Pulmonic Valve: The pulmonic valve leaflets are thin and pliable; valve motion is normal. There is trace pulmonic regurgitation. Great Vessels: The aortic root is mildly dilated. The ascending aorta is mildly enlarged. The aortic arch is mildly enlarged. The inferior vena cava was not visualized. Pericardium/ Pleura There is no pericardial effusion. There is no pleural effusion. MMode/2D Measurements & Calculations LVIDd: 5.1 cm LVOT diam: 2.3 cm LVIDs: 3.5 cm Ao root diam: 3.9 cm FS: 31.4 % asc Aorta Diam: 4.0 cm EPSS: 0.60 cm Ao Arch Diam (Prox Trans): 3.7 cm IVSd: 1.0 cm LVPWd: 1.0 cm LV spaulding. diameter/BSA (cm/m^2): 2.0 LV sys. diameter/BSA (cm/m^2): 1.4 LA dimension: 4.6 cm RA long axis: 5.5 cm LA A2 area: 24.3 cm2 RA area: 19.4 cm2 LA A4 area: 24.8 cm2 RA vol: 57.7 ml LA length (vol): 5.7 cm RA : 22.5 ml/m2 LA vol: 89.7 ml LA vol index: 34.9 ml/m2 LVLs ap4: 6.4 cm LVLd ap2: 7.9 cm LVLs ap2: 6.2 cm RV Mid_phl: 3.8 cm TAPSE_phl: 2.1 cm Doppler Measurements & Calculations Ao V2 max: 112.0 cm/sec LVOT Max Keith: 112.0 cm/sec Ao V2 mean: 82.7 cm/sec LV V1 max P.0 mmHg Ao max P.0 mmHg LV V1 VTI: 24.5 cm Ao mean P.0 mmHg GROVER(I,D): 4.1 cm2 Ao V2 VTI: 24.9 cm GROVER(V,D): 4.2 cm2 sev ratio: 0.98 GROVER indexed to BSA (cm^2/m^2): 1.6 MV E max keith: 67.3 cm/sec TR max keith: 211.0 cm/sec MV A max keith: 79.7 cm/sec TR max P.8 mmHg MV E/A: 0.84 PA V2 max: 102.0 cm/sec Med Peak E' Keith: 5.8 cm/sec PA V2 mean: 66.3 cm/sec E/E' med: 11.6 PA mean P.0 mmHg Lat Peak E' Keith: 9.2 cm/sec E/E' lat: 7.3 E/e' average: 9.5 MV dec time: 0.28 sec MVA(VTI): 2.8 cm2 MV V2 mean: 46.4 cm/sec SV(LVOT): 101.8 ml MV mean P.0 mmHg MV V2 VTI: 36.0 cm AV VR_phl: 1.0 MV P1/2t-pr_phl: 81.0 msec GROVER(VTI)/BSA_phl: 1.6 Reading Physician:01:33 PM
== END ==
PROVIDERS: PCP Student in an Organized Health Care Education/Training Program; Referring Provider Student in an Organized Health Care Education/Training Program; Visit Provider Student in an Organized Health Care Education/Training Program
DX: I77.810 Thoracic aortic ectasia (principal); I77.89 Other specified disorders of arteries and arterioles; R09.89 Other specified symptoms and signs involving the circulatory and respiratory systems
CPT/HCPCS: 93306

== ENCOUNTER → 2022-11-05 07:43 | Outpatient (CLI) | payer MEDICARE, SELFPAY ==
--- NOTE | 2022-11-05 07:43 | DI.US.S_ITS ---
PROCEDURE: US THYROID INDICATIONS: Follow Up Thyroid Nodule TECHNIQUE: Real-time scanning was performed of the thyroid gland, with image documentation. COMPARISON: [facility], US, US THYROID, 07/31/2021, 10:19. FINDINGS: Right: Thyroid lobe measures 5.2 x 2.4 x 2.5 cm, and is homogeneous in echotexture. Left: Thyroid lobe measures 5.2 x 2.1 x 2.6 cm, and is homogenous in echotexture. Isthmus: 5 mm thick. Nodule number: 1 Location: Right mid Size: 2.7 x 1.8 x 2.5 cm, previously 2.9 x 1.9 x 1.9 cm. Composition: Solid Echogenicity: Hypoechoic Shape: wider than tall. Margins: Smooth Echogenic foci: Punctate Total points: 4 ACR TI-RADS category: 4 Nodule number: 2 Location: Right inferior Size: 0.7 x 0.7 x 0.8 cm, previously 0.7 x 0.5 x 0.6 cm. Composition: Solid Echogenicity: Hypoechoic Shape: wider than tall. Margins: Smooth Echogenic foci: Non Total points: 4 ACR TI-RADS category: 4 Nodule number: 3 Location: Right inferior Size: 0.6 x 0.6 x 0.7 cm, not previously seen. Composition: Predominantly solid Echogenicity: Hypoechoic Shape: wider than tall. Margins: Smooth Echogenic foci: Non Total points: 4 ACR TI-RADS category: 4 Nodule number: 4 Location: Left mid Size: 0.7 x 0.5 x 0.6 cm, previously 0.8 x 0.4 x 0.5 cm. Composition: Solid Echogenicity: Hypoechoic Shape: wider than tall. Margins: Smooth Echogenic foci: None Total points: 4 ACR TI-RADS category: 4 IMPRESSION: Bilateral TIRADS category 4 nodules, stable from the prior exam. One new subcentimeter nodule on the right. Continue follow-up schedule per best practice guidelines as below ACR TI-RADS definitions and recommendations: TI-RADS 1 (benign): 0 points. FNA not needed. TI-RADS 2 (not suspicious): 2 points. FNA not needed. TI-RADS 3 (mildly suspicious): 3 points. * FNA if 2.5 cm or larger, follow up if 1.5 cm or larger (at 1, 3, and 5 years). TI-RADS 4 (moderately suspicious): 4-6 points. * FNA if 1.5 cm or larger, follow up if 1 cm or larger (at 1, 2, 3, and 5 years). TI-RADS 5 (highly suspicious): 7 points or more. * FNA if 1 cm or larger, follow up if 0.5 cm or larger (every year for 5 years). REFERENCE: DELETE FROM FINAL REPORT ACR TI-RADS for thyroid nodules: Size: report all 3 dimensions in cm or mm. Composition: choose one. * Cystic: very low risk of malignancy (0 points). * Spongiform: >50% tiny cystic spaces; very low risk of malignancy (0 points). * Mixed cystic and solid (1 point). * Solid: may contain a few cystic spaces (2 points). * Cannot be determined b/c of calcifications (2 points). Echogenicity: choose one. * Anechoic: cyst (0 points). * Hyperechoic (1 point). * Isoechoic (1 point). * Hypoechoic relative to thyroid (2 points). * Very hypoechoic relative to neck muscles (3 points). * Cannot be determined (1 point). Shape: assess in transverse plane; choose one. * Wider than tall (0 points). * Taller than wide (3 points). Margins: choose one. * Smooth (0 points). * Ill-defined or cannot be determined (0 points). * Irregular: may be present in only 1 portion of nodule (2 points). * Lobulated: single or multiple, macro- or micro-lobulated (2 points). * Extrathyroidal extension (3 points). Echogenic foci: choose ALL that apply. * None or large (>1 mm) comet-tail artifact from colloid cysts (0 points). * Macrocalcifications: posterior acoustic shadowing (1 point). * Peripheral calcifications: may not be completely continuous (2 points). * Punctate echogenic foci: dot-like, may have small comet-tail artifacts (3 points). Sum up points to determine TI-RADS level. TI-RADS 1 (benign): 0 points. FNA not needed. TI-RADS 2 (not suspicious): 2 points. FNA not needed. TI-RADS 3 (mildly suspicious): 3 points. * FNA if 2.5 cm or larger, follow up if 1.5 cm or larger (at 1, 3, and 5 years). TI-RADS 4 (moderately suspicious): 4-6 points. * FNA if 1.5 cm or larger, follow up if 1 cm or larger (at 1, 2, 3, and 5 years). TI-RADS 5 (highly suspicious): 7 points or more. * FNA if 1 cm or larger, follow up if 0.5 cm or larger (every year for 5 years). Other points: * Multinodular thyroids: document no more than 4 nodules with highest TI-RADS scores. * Criteria for significant growth on follow up: 20% increase in at least 2 dimensions AND a minimal increase of 2 mm. * If TI-RADS level increases on follow up: next follow should be in 1 year if FNA not performed. * FNA: no more than 2 nodules with the highest TI-RADS scores. Approved by: Ramón Baez M.D. on 11/05/2022 at 12:16
== END ==
PROVIDERS: PCP Student in an Organized Health Care Education/Training Program; Referring Provider Student in an Organized Health Care Education/Training Program; Visit Provider Student in an Organized Health Care Education/Training Program
DX: E04.2 Nontoxic multinodular goiter (principal)
CPT/HCPCS: 76536

== ENCOUNTER → 2023-11-15 07:40 | Outpatient (CLI) | payer MEDICARE, SELFPAY ==
[2023-11-15 09:01] LABS: Alanine Aminotransferase 31 IU/L (<50); Albumin 4.1 g/dL (3.5-5.0); Albumin Globulin Ratio 1.1 (1.0-2.8); Alkaline Phosphatase 63 U/L (38-126); Aspartate Aminotransferase 32 IU/L (17-59); BUN Creatinine Ratio 16.5 (6-22); Bilirubin Total 0.8 mg/dL (0.2-1.3); Blood Urea Nitrogen 22 mg/dL (9-20); Calcium 9.2 mg/dL (8.4-10.2); Carbon Dioxide 28 mmol/L (22-32); Chloride 104 mmol/L (98-107); Cholesterol 157 mg/dL (140-199); Estimated Glomerular Filt Rate 55 mL/min (>60); Globulin 3.6 g/dL (1.7-4.1); Glucose 131 mg/dL (80-110); HDL Cholesterol 32 mg/dL (40-60); HEMOLYSIS < 15 (0-50); LDL Cholesterol Calculated 101 mg/dL (<100); Potassium 4.1 mmol/L (3.4-5.1); Sodium 140 mmol/L (137-145); Total Protein 7.7 g/dL (6.3-8.2); Triglycerides 120 mg/dL (35-150)
[2023-11-15 16:14] LABS: Hep C Virus Ab w/Reflex Quant NEGATIVE s/c (NEGATIVE)
== END ==
LOC: LAB 07:41
PROVIDERS: PCP Family Medicine; Referring Provider Family Medicine; Visit Provider Family Medicine
DX: E78.2 Mixed hyperlipidemia (principal); Z00.00 Encounter for general adult medical examination without abnormal findings; I10 Essential (primary) hypertension; Z11.59 Encounter for screening for other viral diseases
CPT/HCPCS: 36415; 80053; 80061; 86803

== ENCOUNTER → 2024-11-16 07:55 | Outpatient (CLI) | payer MEDICARE, SELFPAY ==
--- NOTE | 2024-11-16 07:57 | DI.NM.S_ITS ---
PROCEDURE: NM EXERCISE TREADMILL NON NUC COMPARISON: None. INDICATIONS: palpitations FINDINGS: Patient exercised per the standard Donovan protocol. Total exercise time was 3 minutes and 14 seconds. Test was terminated secondary to inability walking properly on treadmill. Maximal heart rate obtained is under 63 bpm which is 115% of maximum predicted heart rate. Maximum blood pressure was 230/[place] [id number]. KEHINDE +34%. 4.6 METS. No ischemic changes noted. Frequent PVCs and short atrial runs noted during the stress phase. No ventricular arrhythmias noted. 1 out of 10 chest pain noted at the beginning of recovery and resolved with improvement of blood pressure. IMPRESSION: 1. Equivocal exercise treadmill stress test for ischemia due to the presence of chest pains. 2. Below average exercise tolerance but this may be due to inability to walk on treadmill. 3. Hypertensive response to exercise. Dictated by: Ranjit García M.D. on 11/16/2024 at 12:22 Approved by: Ranjit García M.D. on 11/16/2024 at 12:25
[2024-11-16 09:37] LABS: Hematocrit 46.6 % (41-53); Hemoglobin 15.8 g/dL (13.5-17.5); Mean Corpuscular Hemoglobin 30.6 PG (26-34); Mean Corpuscular Volume 90.1 fL (80-100); Platelet Count 317 X10^3/uL (150-400); Red Blood Cell Count 5.17 X10^6/uL (4.5-5.9); Red Cell Distribution Width 13.5 % (11.6-14.8)
[2024-11-16 10:09] LABS: Alanine Aminotransferase 39 IU/L (<50); Albumin 4.6 g/dL (3.5-5.0); Albumin Globulin Ratio 1.4 (1.0-2.8); Alkaline Phosphatase 69 U/L (38-126); Aspartate Aminotransferase 33 IU/L (17-59); BUN Creatinine Ratio 15.9 (6-22); Bilirubin Total 0.9 mg/dL (0.2-1.3); Blood Urea Nitrogen 23 mg/dL (9-20); Calcium 9.8 mg/dL (8.4-10.2); Carbon Dioxide 24 mmol/L (22-32); Chloride 103 mmol/L (98-107); Cholesterol 178 mg/dL (140-199); Estimated Glomerular Filt Rate 49 mL/min (>60); Globulin 3.3 g/dL (1.7-4.1); Glucose 133 mg/dL (80-110); HDL Cholesterol 40 mg/dL (40-60); HEMOLYSIS < 15 (0-50); LDL Cholesterol Calculated 107 mg/dL (<100); Potassium 4.9 mmol/L (3.4-5.1); Sodium 139 mmol/L (137-145); Total Protein 7.9 g/dL (6.3-8.2); Triglycerides 155 mg/dL (35-150)
== END ==
PROVIDERS: PCP Family Medicine; Referring Provider Family Medicine; Visit Provider Family Medicine
DX: Z00.00 Encounter for general adult medical examination without abnormal findings (principal); R00.2 Palpitations; E78.2 Mixed hyperlipidemia; R53.82 Chronic fatigue, unspecified; I10 Essential (primary) hypertension; R07.9 Chest pain, unspecified
CPT/HCPCS: 36415; 80053; 80061; 83036; 85027; 93017

== ENCOUNTER → 2025-01-08 09:03 | Outpatient (CLI) | payer MEDICARE, SELFPAY ==
[2025-01-08 10:14] LABS: BUN Creatinine Ratio 20.6 (6-22); Blood Urea Nitrogen 27 mg/dL (9-20); Carbon Dioxide 26 mmol/L (22-32); Chloride 102 mmol/L (98-107); Estimated Glomerular Filt Rate 56 mL/min (>60); Glucose 128 mg/dL (80-110); HEMOLYSIS < 15 (0-50); Potassium 4.9 mmol/L (3.4-5.1); Sodium 140 mmol/L (137-145)
== END ==
PROVIDERS: PCP Family Medicine; Referring Provider Family Medicine; Visit Provider Family Medicine
DX: I10 Essential (primary) hypertension (principal); I87.2 Venous insufficiency (chronic) (peripheral)
CPT/HCPCS: 36415; 80048

== ENCOUNTER → 2025-04-26 08:06 | Outpatient (CLI) | payer MEDICARE, SELFPAY ==
[2025-04-26 09:03] LABS: Hemoglobin A1C% w Est Avg Glu 6.2 % (4.0-6.0)
[2025-04-26 09:14] LABS: Cholesterol 121 mg/dL (140-199); HDL Cholesterol 34 mg/dL (40-60); Triglycerides 100 mg/dL (35-150)
== END ==
PROVIDERS: PCP Family Medicine; Referring Provider Family Medicine; Visit Provider Family Medicine
DX: R73.01 Impaired fasting glucose (principal); E78.2 Mixed hyperlipidemia
CPT/HCPCS: 36415; 80061; 83036

== ENCOUNTER → 2025-05-09 08:32 | Outpatient (CLI) | payer MEDICARE, SELFPAY ==
[2025-05-09 08:48] LABS: Add Manual Diff / Slide Review NO; Hematocrit 42.0 % (41-53); Hemoglobin 14.2 g/dL (13.5-17.5); Lymphocytes Absolute Auto 1900 /uL (1100-4500); Mean Corpuscular HGB Conc 33.9 % (30-36); Mean Corpuscular Hemoglobin 30.5 PG (26-34); Mean Corpuscular Volume 89.9 fL (80-100); Platelet Count 366 X10^3/uL (150-400)
[2025-05-09 09:06] LABS: Alanine Aminotransferase 57 IU/L (<50); Albumin 3.9 g/dL (3.5-5.0); Albumin Globulin Ratio 1.2 (1.0-2.8); Alkaline Phosphatase 65 U/L (38-126); Blood Urea Nitrogen 35 mg/dL (9-20); Calcium 9.1 mg/dL (8.4-10.2); Carbon Dioxide 26 mmol/L (22-32); Chloride 103 mmol/L (98-107); Creatine Kinase 77 U/L (55-170); Estimated Glomerular Filt Rate 55 mL/min (>60); Globulin 3.2 g/dL (1.7-4.1); Glucose 133 mg/dL (70-99); HEMOLYSIS < 15 (0-50); Potassium 4.2 mmol/L (3.4-5.1); Sodium 137 mmol/L (137-145); Total Protein 7.1 g/dL (6.3-8.2)
== END ==
PROVIDERS: PCP Family Medicine; Referring Provider Family Medicine; Visit Provider Family Medicine
DX: M79.10 Myalgia, unspecified site (principal); N18.30 Chronic kidney disease, stage 3 unspecified; I10 Essential (primary) hypertension
CPT/HCPCS: 36415; 80053; 82550; 85025; 85651; 86140

== ENCOUNTER → 2025-05-18 08:36 | Outpatient (CLI) | payer MEDICARE, SELFPAY ==
[2025-05-18 09:55] LABS: Creatine Kinase 73 U/L (55-170)
== END ==
PROVIDERS: Family Provider Family Medicine; PCP Family Medicine; Referring Provider Family Medicine; Visit Provider Family Medicine
DX: M35.3 Polymyalgia rheumatica (principal)
CPT/HCPCS: 36415; 82550; 85651; 86038; 86140; 86200; 86430

== ENCOUNTER 2025-07-03 07:30 | Outpatient (RCR) | payer MEDICARE, SELFPAY ==
--- NOTE | 2025-05-23 10:55 | PT.OPPOC ---
Physical, Occupational & Speech Therapy At [facility] Current Diagnoses Other chronic pain (05/23/25) Low back pain, unspecified (05/23/25) Myalgia, unspecified site (05/23/25) Visit Care Team Role Provider Type Chu Rojas DO Attending Provider Physician Family Provider Primary Care Provider Referring Provider Specialty: Family Practice Address: [address] [place] [address], [address], [facility] Email: [email or web address] Plan Of Care PT OP: Lower Back/Extremity Start: 05/22/25 18:34 Freq: Status: Active Protocol: Document 05/23/25 08:17 [facility] (Rec: 05/23/25 09:48 [facility] [id number]) Out-Patient Physical Therapy Visit Information Visit Information Visit Type Initial Evaluation Visit Start Time 08:18 Visit Stop Time 08:58 Visit Number 1 Number of SENIOR SUPPLIER QUALITY ENGINEER Visits 0 Current Condition History of Current Condition Onset Date 1 month ago (hx of low level) Current Complaints back pain, LE Pain, B shoulder pain, R hip pain History of Current Pt reports has been on meds for 4 days (prednisone) Condition again and that is helping. Pt reports about 1 month ago had severe muscle pain in entire body (neck, back, shoulder, hips, post legs) that was almost debilitating . Made it difficult for him to do anything. He had a week of steroids that helped but pain came back. The steroid meds relieved it and now on it again and the pain is manageable now. Can increase the dosage as he needs to. He has 2 month supply of steroids w/refill. has no history of this in the past. HE has dealt with low grade pain for a long time (did construction and carpentry work). Shoulders and R hip have given him issues and LBP but was always manageable. When the severe pain was present, had a difficulty standing up. Still has to push himself up now which is not normal for him. Prior to the severe pain, he could do 20 to 30 min walks but now stopped d/t pain. primary thinks potential polymyalgia rheumatica and pt has referral to rheumatology . Has a motorized stationary bike and was using that to keep things moving. Treatment Goals Patient/Caregiver no specific Goals Balance Tests Single Limb Standing Single Limb- Right 7 sec inc deviation B Single Limb- Left 2 sec Manual Assessments Other Manual Assessments Other Manual shoulder MMT: flex B :4/5; abd: 3+/5, ER: 3+/5; IR 4/5; Assessments ext 5/5; shoulder flex R: 124 L: 155 deg OP Mobility Evaluation Transfers Sit to Stand heavy UE use OP Gait Assessment Comments Gait Comments lat leaning and dec foot clearance B Posture Evaluation Emy Postural Classification System Lumbar Protective 1 Mechanism Left AP Lumbar Protective 1 Mechanism Right AP Lumbar Protective 1 Mechanism Left PA Lumbar Protective 1 Mechanism Right PA Comments Posture Comments inc kyphosis, fwd head, flattend lordosis, R rotation of trunk, R pelvic shear Lumbar Spine Range of Motion Lumbar Spine Active Percentage Flexion 25 Extension 50 Rotation Left 40 Rotation Right 40 Lateral Flexion Left 50 Lateral Flexion 50 Right ROM Limitations Soft Tissue Tightness Hip Strength Hip Manual Muscle Testing Right Flexion (L2) 4- Good- Abduction 3+ Fair+ External Rotation 3+ Fair+ Internal Rotation 4- Good- Left Flexion (L2) 4 Good Abduction 3+ Fair+ External Rotation 3+ Fair+ Internal Rotation 4+ Good+ Knee Strength Knee Manual Muscle Testing Right Flexion (S2) 5 Normal Extension (L3) 5 Normal Left Flexion (S2) 5 Normal Extension (L3) 5 Normal Ankle/Foot Strength Ankle and Foot Manual Muscle Testing Right Dorsiflexion (L4) 4 Good Plantarflexion (S1) 4 Good Comments PF tested seated B Left Dorsiflexion (L4) 4 Good Plantarflexion (S1) 4 Good Therapeutic Exercises Standing Exercises paloff press Side bilateral Resistance 2 Lvl 3 bands Reps/Minutes 10 Comments cues neutral spine row Side bilateral Equipment Used L3 Reps/Minutes 10 Comments cues scap Physical Therapy Assessment Rehab Potential Rehabilitation Good Potential Evaluation Complexity Number of Personal 3 or More Factors/ Comorbidities Number of Body 4 or More Systems Impaired Clinical Evolving Presentation at Evaluation Impairments Impairments Activity Tolerance,Balance,Functional Activities, Functional Mobility,Gait,Pain,Posture,ROM,Soft Tissue Mobility,Strength,Transfers Goals balance Stroke Belt Sander Operator Goal (LTG) Pt will be able to do SLS 15 sec B w/o inc pain to show improved balance LTG Duration 08/13 activities Short Term Goal (STG Pt will report no pain or difficulty w/bed mobility. ) STG Duration / Alf Goal (LTG) Pt will be able to stand from chair w/o inc pain or inc difficulty and report return to 20-30 min walks w/o inc pain greater than 2/10 LTG Duration 08/16 strength Short Term Goal (STG Pt will be indep w/HEP by ability to demo HEP w/o cues ) to allow for self relief of pain. STG Duration 06/23 Alf Goal (LTG) Pt will score at least 4+/5 on all BLE MMT and at least 3/5 LPM all planes to show improved stability in order to allow greater ease with ADLs. LTG Duration 08.16 Assessment Summary Assessment Pt presents w/1 month ago onset of significant pain throughout entire body that was debilitating and limited his mobility. He is doing better w/use of prednisone, but sitll has not returned to his walks, and still notes inc difficulty getting up/down from chairs and rolling in bed. He has overall LE and core weakness, dec balance, cont pain, but at a more manageable level than 1 month ago and dec overall ROM of R shoulder, R hip and lumbar spine. He would benefit from skilled PT to address these deficits and return him to typical function w/o significant pain or difficulty. Physical Therapy Plan Frequency and Duration Frequency of 1x/Week Treatment Duration of 12 treatment (weeks) Plan of Care Start 05/23/25 Date Plan of Care End 08/21/25 Date Therapeutic Interventions Therapeutic Balance Training,Gait Training,Home Exercise Program, Interventions Joint Mobilizations,Manual Therapy,Neuromuscular Re- education,Patient/Caregiver Education,Self-Care/Home Management,Soft Tissue Mobilization,Taping,Therapeutic Activities,Therapeutic Exercises Modalities Cold Pack/Ice Massage,Electric Stimulation,Hot Packs, Infrared Therapy,Ultrasound Next Visit Focus/Plan Next Note Type Treatment Note Next Visit Plan review exercises, Hip abd and core strength; scap strengthening. Plan of Care Dates Plan of Care Start Date 05/23/25 Plan of Care End Date 08/21/25 Electronically Signed by: Lynnette Packer, PT 05/23/25 [id number] If you are in agreement with this Plan of Care, please return a signed and dated copy. I have reviewed this Plan of Care and certify that the skilled therapy services above are required to meet the patient?s needs. Physician Signature Date Printed Name and Credentials Clinical Instructor Signature Printed Name and Credentials
--- NOTE | 2025-06-05 08:16 | PT.OTN ---
Current Diagnoses Other chronic pain (06/05/25) Low back pain, unspecified (06/05/25) Myalgia, unspecified site (06/05/25) Physical Therapy Treatment Note PT OP: Lower Back/Lower Extremity Start: 05/22/25 18:34 Freq: Status: Active Protocol: Document 06/05/25 07:29 [facility] (Rec: 06/05/25 08:16 [facility] [id number]) Out-Patient Physical Therapy Visit Information Visit Information Visit Type Treatment Note Visit Start Time 07:34 Visit Stop Time 08:14 Visit Number 2 Number of SEA FOAM KISS MAKER Visits 0 Progress Note Due 06/23/25 OP-PT Subjective Patient Comments Patient Comments was sore after 9 hours of driving yesterday. He is more manageable today. busy at his granddaughter's wedding past week so didn't do exercises much last week. Gym Equipment Shuttle Recovery Unilateral Squats Resistance 37# Reps/Time 10 B Shuttle Balance red clips Details cues posture Comments fwd & side: WBOS & NBOS fwd: staggered stance B Therapeutic Exercises Supine Exercises LTR Side bilateral Reps/Minutes 5sec x4 Comments cues core to bring LEs back up stretches Supine Exercise Name 1. HS stretch 2. DKTC 3. piriformis 4. figure 4 Side bilateral Reps/Minutes 1 min ea Comments cues set up and breathing Standing Exercises DF Standing Exercise back against rail Name Side bilateral Reps/Minutes 20 stretch Standing Exercise standing christina pose for shoulder, back and HS stretch Name Side bilateral Reps/Minutes 1 min ER Side bilateral Equipment Used L1 Reps/Minutes 2x10 Comments cues scap w/o back arch sidestep Side bilateral Equipment Used L1 Reps/Minutes 20ftx2 Comments cues no leaning squat Standing Exercise mini at counter Name Side bilateral Reps/Minutes 15 Comments comfortable range-cues back straight paloff press Side bilateral Resistance 2 Lvl 1 bands Reps/Minutes 10 Comments cues neutral spine row Side bilateral Equipment Used L3 Reps/Minutes 10 Comments cues scap Physical Therapy Assessment Goals balance Care Home Goal (LTG) Pt will be able to do SLS 15 sec B w/o inc pain to show improved balance LTG Duration 10/20 activities Short Term Goal (STG Pt will report no pain or difficulty w/bed mobility. ) STG Duration 9/2 Care Home Goal (LTG) Pt will be able to stand from chair w/o inc pain or inc difficulty and report return to 20-30 min walks w/o inc pain greater than 2/10 LTG Duration 08/16 strength Short Term Goal (STG Pt will be indep w/HEP by ability to demo HEP w/o cues ) to allow for self relief of pain. STG Duration 06/23 Care Home Goal (LTG) Pt will score at least 4+/5 on all BLE MMT and at least 3/5 LPM all planes to show improved stability in order to allow greater ease with ADLs. LTG Duration 08.16 Assessment Summary Assessment had to adjust paloff press to lesser band d/t lvl 3 causing pain at home. pt did well with less resistance w/o pain. able to tolerate new exercises well w/cues throughout for posture. Physical Therapy Plan Frequency and Duration Frequency of 1x/Week Treatment Duration of 12 treatment (weeks) Plan of Care Start 05/23/25 Date Plan of Care End 08/21/25 Date Next Visit Focus/Plan Next Note Type Treatment Note Next Visit Plan review exercises, Hip abd and core strength; scap strengthening. balance. manual as needed for pain
--- NOTE | 2025-06-12 08:19 | PT.OTN ---
Current Diagnoses Other chronic pain (06/12/25) Low back pain, unspecified (06/12/25) Myalgia, unspecified site (06/12/25) Physical Therapy Treatment Note PT OP: Lower Back/Lower Extremity Start: 05/22/25 18:34 Freq: Status: Active Protocol: Document 06/12/25 07:31 [facility] (Rec: 06/12/25 08:19 [facility] [id number]) Out-Patient Physical Therapy Visit Information Visit Information Visit Type Treatment Note Visit Start Time 07:33 Visit Stop Time 08:13 Visit Number 3 Number of WELLNESS GUIDE Visits 0 Progress Note Due 06/23/25 OP-PT Subjective Patient Comments Patient Comments Feels some work in shoulders and hips w/exercises. Gym Equipment Shuttle Recovery Unilateral Squats Details cues for knee alignment; L3 band to encourage lat tracking of knee Resistance 50# (1 navy Reps/Time 15 B Therapeutic Exercises Supine Exercises LTR Side bilateral Reps/Minutes 5sec x8 Comments cues core to bring LEs back up stretches Supine Exercise Name 1. HS stretch 2. DKTC 3. piriformis 4. figure 4 Side bilateral Reps/Minutes 1 min ea Comments cues set up and breathing Standing Exercises DF Standing Exercise back against rail Name Side bilateral Reps/Minutes 20 stretch Standing Exercise standing christina pose for shoulder, back and HS stretch Name Side bilateral Reps/Minutes [id number] ER Side bilateral Equipment Used L1 Reps/Minutes 2x10 Comments cues scap w/o back arch sidestep Side bilateral Equipment Used L1 Reps/Minutes 20 steps ea B Comments cues no leaning squat Standing Exercise mini at counter Name Side bilateral Reps/Minutes 15 Comments cues to gradually inc range paloff press Side bilateral Resistance 2 Lvl 1 bands Reps/Minutes 10 Comments cues neutral spine and stepping further away for more resistance row Side bilateral Equipment Used L3 Reps/Minutes 15 Comments cues scap and dec arch Manual Therapy Treatment Consent Patient gave verbal Yes consent for manual treatment Soft Tissue Mobilization superior Body Location B UT, LS Mobilization Type Rolling Body Position Supine pec Body Location R Mobilization Type Rolling Intensity/Depth Moderate Joint Mobilizations GH Joint B distraction and post glide Grade II Physical Therapy Assessment Goals balance Fpc Goal (LTG) Pt will be able to do SLS 15 sec B w/o inc pain to show improved balance LTG Duration 10 activities Short Term Goal (STG Pt will report no pain or difficulty w/bed mobility. ) STG Duration 06/26 Fpc Goal (LTG) Pt will be able to stand from chair w/o inc pain or inc difficulty and report return to 20-30 min walks w/o inc pain greater than 2/10 LTG Duration 08/16 strength Short Term Goal (STG Pt will be indep w/HEP by ability to demo HEP w/o cues ) to allow for self relief of pain. STG Duration 06/23 Resident Buyer Goal (LTG) Pt will score at least 4+/5 on all BLE MMT and at least 3/5 LPM all planes to show improved stability in order to allow greater ease with ADLs. LTG Duration 08.16 Assessment Summary Assessment Less cues needed for exercises but cueing still needed with most standing exercises. DId well with stretches. more tightness L>R shoulder especially pec. Physical Therapy Plan Frequency and Duration Frequency of 1x/Week Treatment Duration of 12 treatment (weeks) Plan of Care Start 05/23/25 Date Plan of Care End 08/21/25 Date Next Visit Focus/Plan Next Note Type Treatment Note Next Visit Plan review exercises, Hip abd and core strength; scap strengthening. balance. manual as needed for pain
--- NOTE | 2025-06-19 08:16 | PT.OTN ---
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 Came to PT suddenly muscle inflammation that caused him to feel debilitated during mobility, taking meds to help ease pain. Gym Equipment Shuttle Recovery Unilateral Squats Details cues for knee alignment; L3 band to encourage lat tracking of knee Resistance 50# (2 navy) Reps/Time 2x15 B Shuttle Balance red clips Details cues posture Comments wt shift, HTs WBOS and stride stance CG- Min A cues corrections Therapeutic Ball core series Exercise Details LTR, KTC with Lv3 TB, bridge Ball Size/Color 65cm tball Reps/Duration 10 reps eacxh Comments cued TA fac, good slow pacing form, no pain Therapeutic Exercises Supine Exercises stretches Supine Exercise Name 1. HS stretch 2. DKTC 3. piriformis 4. figure 4 Side bilateral Reps/Minutes 1 min ea Comments cues set up and breathing Sitting Exercises Hip Abduction Resistance TB #6 dark green Reps/Minutes 60 sec hold then 15 reps Comments good muscle tiring Standing Exercises DF Standing Exercise back against rail Name Side bilateral Reps/Minutes 20 sidestep Standing Exercise lateral, fwd, bwd Name Side bilateral Equipment Used L1>3 Reps/Minutes 10 ft x2 laps each direction Comments cues no leaning Neuro Re-Education Treatment Balance Activities corner balance Details tandem with HTs Equipment corner at back, chair front Comments cued midline, core, wt shift front foot, improved stability with reps Physical Therapy Assessment Goals balance Explosive Ordnance Disposal Specialist Goal (LTG) Pt will be able to do SLS 15 sec B w/o inc pain to show improved balance LTG Duration 10/20 activities Short Term Goal (STG Pt will report no pain or difficulty w/bed mobility. ) STG Duration 9/2 Longterm Goal (LTG) Pt will be able to stand from chair w/o inc pain or inc difficulty and report return to 20-30 min walks w/o inc pain greater than 2/10 LTG Duration 08/16 strength Short Term Goal (STG Pt will be indep w/HEP by ability to demo HEP w/o cues ) to allow for self relief of pain. STG Duration 06/23 Explosive Ordnance Disposal Specialist Goal (LTG) Pt will score at least 4+/5 on all BLE MMT and at least 3/5 LPM all planes to show improved stability in order to allow greater ease with ADLs. LTG Duration 08.16 Assessment Summary Assessment Pt improved core and hip abd engagement with resisted ther ex today, progressed cues for postural alignment and core with hip fac for midline stability druing corner balance to allow carryover home progression. Physical Therapy Plan Frequency and Duration Frequency of 1x/Week Treatment Duration of 12 treatment (weeks) Plan of Care Start 05/23/25 Date Plan of Care End 08/21/25 Date Therapeutic Interventions Therapeutic Balance Training,Gait Training,Home Exercise Program, Interventions Joint Mobilizations,Manual Therapy,Neuromuscular Re- education,Patient/Caregiver Education,Self-Care/Home Management,Soft Tissue Mobilization,Taping,Therapeutic Activities,Therapeutic Exercises Modalities Cold Pack/Ice Massage,Electric Stimulation,Hot Packs, Infrared Therapy,Ultrasound Next Visit Focus/Plan Next Note Type Treatment Note Next Visit Plan REcheck HEP Hip abd and core strength and added corner balance POC: progress scap strengthening. balance. manual as needed for pain
--- NOTE | 2025-06-26 08:22 | PT.OTN ---
Current Diagnoses Other chronic pain (06/26/25) Low back pain, unspecified (06/26/25) Myalgia, unspecified site (06/26/25) Physical Therapy Treatment Note PT OP: Lower Back/Lower Extremity Start: 05/22/25 18:34 Freq: Status: Active Protocol: Document 06/26/25 07:36 [facility] (Rec: 06/26/25 08:23 [facility] [id number]) Out-Patient Physical Therapy Visit Information Visit Information Visit Type Treatment Note Visit Start Time 07:36 Visit Stop Time 08:22 Visit Number 6 Number of BUSINESS CONTINUITY DIRECTOR Visits 2 Progress Note Due 06/23/25 OP-PT Subjective Patient Comments Patient Comments Pt reports his back was feeling little better after last tx and so did some yard work, trimming back black marquez bushes, hasn't had to mow lawn. He arrives back sore across SI. He sleeps well, hasnt' gotten to HEP as much as should. Therapeutic Exercises Supine Exercises LTR Side bilateral Reps/Minutes 5sec x8 Comments cues core engagement to bring LEs back up midline with breath stretches Supine Exercise Name 1. HS stretch 2. DKTC 3. piriformis 4. figure 4 5. Modified Deacon Stretch Side bilateral Reps/Minutes 1 min ea with strap today piriformis Comments cues set up and breathing Sitting Exercises Hip Abduction Sitting Exercise verbal review Name Resistance TB #6 dark green Reps/Minutes 60 sec hold then 15 reps Comments good muscle tiring Standing Exercises DF Standing Exercise back against rail- verbal review Name Side bilateral Reps/Minutes 20 sidestep Standing Exercise lateral, fwd, bwd- verbal reivew Name Side bilateral Equipment Used L1>3 Reps/Minutes 10 ft x2 laps each direction Comments cues no leaning Manual Therapy Treatment Consent Patient gave verbal Yes consent for manual treatment Soft Tissue Mobilization hips Body Location Glut med, piriformis Body Position Prone Comments PROM hip IR/ER sustained pressure in muscle- good feedback response back Body Location B: Es, paraspinals, QL Comments prone STMs, ed self use ball on wall for carryover application Joint Mobilizations Hips Direction anteromedial, posterolateral with strap & towel Grade II Body Position Hooklying Comments good feedback response Physical Therapy Assessment Goals balance Breastfeeding Educator Goal (LTG) Pt will be able to do SLS 15 sec B w/o inc pain to show improved balance LTG Duration 10/20 activities Short Term Goal (STG Pt will report no pain or difficulty w/bed mobility. ) STG Duration 06/26 Fci Goal (LTG) Pt will be able to stand from chair w/o inc pain or inc difficulty and report return to 20-30 min walks w/o inc pain greater than 2/10 LTG Duration 08/16 strength Short Term Goal (STG Pt will be indep w/HEP by ability to demo HEP w/o cues ) to allow for self relief of pain. STG Duration 06/23 Breastfeeding Educator Goal (LTG) Pt will score at least 4+/5 on all BLE MMT and at least 3/5 LPM all planes to show improved stability in order to allow greater ease with ADLs. LTG Duration 08.16 Assessment Summary Assessment Pt responded well to manual and stretching review today with improved hip and LS ROM reported. Cued education on TA draw support while under instruction of progresssion hip abductor strengthening for spinal alignment for stability and decreased LS compensation recruitment. Continued cues for DF in standing against gravity vs seated for increased strengthening effort and support active calf stretching to improve foot clearance and safety during gait. Physical Therapy Plan Frequency and Duration Frequency of 1x/Week Treatment Duration of 12 treatment (weeks) Plan of Care Start 05/23/25 Date Plan of Care End 08/21/25 Date Therapeutic Interventions Therapeutic Balance Training,Gait Training,Home Exercise Program, Interventions Joint Mobilizations,Manual Therapy,Neuromuscular Re- education,Patient/Caregiver Education,Self-Care/Home Management,Soft Tissue Mobilization,Taping,Therapeutic Activities,Therapeutic Exercises Modalities Cold Pack/Ice Massage,Electric Stimulation,Hot Packs, Infrared Therapy,Ultrasound Next Visit Focus/Plan Next Note Type Treatment Note Next Visit Plan * Add more appts, next appt is last scheduled!! REcheck HEP Hip abd and core strength and added corner balance POC: progress scap strengthening. balance. manual as needed for pain
--- NOTE | 2025-07-03 08:20 | PT.OPDS ---
Current Diagnoses Other chronic pain (07/03/25) Low back pain, unspecified (07/03/25) Myalgia, unspecified site (07/03/25) Visit Care Team Role Provider Type Chu Rojas DO Attending Provider Physician Family Provider Primary Care Provider Referring Provider Specialty: Family Practice Address: [address] [place] [address], [address], [address] Email: [email or web address] Visit Number Visit Number 7 Discharge Summary PT OP: Lower Back/Lower Extremity Start: 05/22/25 18:34 Freq: Status: Active Protocol: Document 07/03/25 07:31 [facility] (Rec: 07/03/25 08:20 [facility] [id number]) Out-Patient Physical Therapy Visit Information Visit Information Visit Type Discharge Summary Visit Start Time 07:35 Visit Stop Time 08:15 Visit Number 7 Number of [employer] Visits 0 Progress Note Due 08/02/25 OP-PT Subjective Patient Comments Patient Comments feels like manual work is helping. has some pain in lower buttocks. now on 10 mg of steroid Balance Tests Single Limb Standing Single Limb- Right 16 sec Single Limb- Left 6 sec Posture Evaluation Emy Postural Classification System Lumbar Protective 3 Mechanism Left AP Lumbar Protective 2 Mechanism Right AP Lumbar Protective 2 Mechanism Left PA Lumbar Protective 2 Mechanism Right PA Hip Strength Hip Manual Muscle Testing Right Flexion (L2) 4 Good Abduction 4- Good- External Rotation 5 Normal Internal Rotation 5 Normal Left Flexion (L2) 4 Good Abduction 4- Good- External Rotation 5 Normal Internal Rotation 5 Normal Knee Strength Knee Manual Muscle Testing Right Flexion (S2) 5 Normal Extension (L3) 5 Normal Left Flexion (S2) 5 Normal Extension (L3) 5 Normal Ankle/Foot Strength Ankle and Foot Manual Muscle Testing Right Dorsiflexion (L4) 4+ Good+ Plantarflexion (S1) 4+ Good+ Comments PF tested seated B Left Dorsiflexion (L4) 4 Good Plantarflexion (S1) 4+ Good+ Therapeutic Exercises Supine Exercises LTR Side bilateral Reps/Minutes 5sec x6 Comments cues core engagement to bring LEs back up midline with breath stretches Supine Exercise Name 1. HS stretch 2. DKTC 3. piriformis 4. figure 4 5. Modified Deacon Stretch Side right Reps/Minutes 3 min total review Comments cues set up and breathing Sitting Exercises Hip Abduction Resistance TB 5 Reps/Minutes 60 sec hold Standing Exercises DF Standing Exercise back against rail- verbal review Name Side bilateral Reps/Minutes 12 stretch Standing Exercise standing christina pose for shoulder, back and HS stretch Name Side bilateral Reps/Minutes 30sec ER Side bilateral Equipment Used L1 Reps/Minutes 8 Comments cues eccentric control sidestep Standing Exercise lateral, fwd, bwd- verbal reivew Name Side bilateral Equipment Used L3 ankles Reps/Minutes 8 ea Comments cues no leaning squat Standing Exercise mini at counter Name Side bilateral Reps/Minutes 5 Comments cues to gradually inc range, knee position paloff press Side bilateral Resistance 2 Lvl 3 bands Reps/Minutes 10 Comments cues neutral spine and stepping further away for more resistance row Side bilateral Equipment Used L3 Reps/Minutes 8 Comments cues scap and dec arch Physical Therapy Assessment Goals balance [employer] Goal (LTG) Pt will be able to do SLS 15 sec B w/o inc pain to show improved balance 07/03-16 sec R, 6 L LTG Duration 08/13 activities Short Term Goal (STG Pt will report no pain or difficulty w/bed mobility. ) STG Duration achieved 07/03 [employer] Goal (LTG) Pt will be able to stand from chair w/o inc pain or inc difficulty and report return to 20-30 min walks w/o inc pain greater than 2/10 07/03-up/down from chair; has not walked LTG Duration 08/16 strength Short Term Goal (STG Pt will be indep w/HEP by ability to demo HEP w/o cues ) to allow for self relief of pain. STG Duration achieved 07/03 [employer] Goal (LTG) Pt will score at least 4+/5 on all BLE MMT and at least 3/5 LPM all planes to show improved stability in order to allow greater ease with ADLs. 07/03-improving LTG Duration 08.16 Assessment Summary Assessment Pt has improved balance and strength since starting PT. He is indep w/his HEP w/min cues needed today. At this time, pt feels ready to DC to HEP. Pain is less but pt does cont to be on steroids with doctor's monitoring. Physical Therapy Plan Discharge Physical Therapy Discharge Comments indep w/HEP, good progress towards goals
== END 2025-07-03 11:19 | disposition home or self-care (01) ==
LOC: PHYS 07:30
PROVIDERS: Family Provider Family Medicine; PCP Family Medicine; Referring Provider Family Medicine; Visit Provider Family Medicine
DX: M54.50 Low back pain, unspecified (principal); G89.29 Other chronic pain; M79.10 Myalgia, unspecified site
CPT/HCPCS: 97110; 97112; 97140; 97162

== ENCOUNTER → 2025-08-07 08:32 | Outpatient (CLI) | payer MEDICARE, SELFPAY ==
[2025-08-07 10:01] LABS: Hemoglobin A1C% w Est Avg Glu 7.2 % (4.0-6.0)
== END ==
PROVIDERS: Family Provider Family Medicine; PCP Family Medicine; Referring Provider Family Medicine; Visit Provider Family Medicine
DX: G47.33 Obstructive sleep apnea (adult) (pediatric) (principal); R73.01 Impaired fasting glucose; I10 Essential (primary) hypertension
CPT/HCPCS: 36415; 83036; 99214